=== PATIENT | male | born 1990 | race Caucasian/White ===

== ENCOUNTER 2017-02-02 14:15 | Emergency (ER) | payer OTHER | END 2017-02-02 15:51 | disposition home or self-care (01) | DX: R00.2 Palpitations (principal); R03.0 Elevated blood-pressure reading, without diagnosis of hypertension ==

== ENCOUNTER 2017-03-16 10:08 | Emergency (ER) | payer OTHER ==
[2017-03-16] MEDS ORDERED: KETOROLAC 60 MG/2 ML VIAL IVP STA (11:33)
[2017-03-16] MEDS ORDERED: SODIUM CHLORIDE 0.9% 1,000 ML IV ONE (11:33)
[2017-03-16] MEDS ORDERED: KETOROLAC 30 MG/ML VIAL ONE (11:42)
== END 2017-03-16 12:50 | disposition home or self-care (01) ==
DX: R55 Syncope and collapse (principal); E86.0 Dehydration; S29.011A Strain of muscle and tendon of front wall of thorax, initial encounter; X50.0XXA Overexertion from strenuous movement or load, initial encounter; Y93.89 Activity, other specified; Y92.89 Other specified places as the place of occurrence of the external cause; Y99.0 Civilian activity done for income or pay

== ENCOUNTER 2017-04-01 16:02 | Outpatient (CLI) | payer OTHER | END 2017-04-01 16:03 | disposition EMS.NT | LOC: EMS 16:02 | PROVIDERS: ATTEND Surgery | DX: R09.89 Other specified symptoms and signs involving the circulatory and respiratory systems (principal) ==

== ENCOUNTER 2017-04-11 09:54 | Outpatient (CLI) | payer OTHER ==
[2017-04-11] MEDS ORDERED: GADOBUTROL 10 MMOL/10 ML SYRINGE IVP ONE (14:55)
--- NOTE | 2017-04-12 06:03 | MRI Report ---
EXAM: MRI BRAIN WITHOUT AND WITH CONTRAST EXAM DATE: 04/11/2017 03:08 PM. CLINICAL HISTORY: TEMPORARY HEARING LOSS AND BLURRED VISION. COMPARISON: None. TECHNIQUE: Multiplanar, multisequence T1-weighted and fluid-sensitive MR sequences of the brain were performed. Sequences optimized for routine evaluation. Other: None. Without and with IV Contrast: 10 mL of Gadavist. FINDINGS: Brain Volume: Normal for age. Parenchyma/Dura: No masses, infarcts, or hemorrhage. No white matter lesions identified. Ventricles/Cisterns: Normal. No hydrocephalus. Sinuses: Normal. No sinusitis evident. Bones: Normal. Other: There is normal contrast opacification in the intracranial arteries and dural venous sinuses. IMPRESSION: Normal contrast-enhanced brain MRI. [facility] Referring Provider Line: [phone] SITE ID: [id number]
== END 2017-04-11 09:55 | disposition home or self-care (01) ==
LOC: DI 09:54
PROVIDERS: ATTEND General Practice
DX: H91.8X1 Other specified hearing loss, right ear (principal); H53.8 Other visual disturbances
CPT/HCPCS: 70553; A9585